=== PATIENT | male | born 1965 | race Caucasian/White ===

== ENCOUNTER 2022-12-16 19:12 | Observation (INO) | payer OTHER, BC, SELFPAY ==
[2022-12-16] VITALS (19 sets, daily range): BP systolic 166–198; BP diastolic 79–99; PULSE 82–108; RESP 18–20; TEMP 36.4–36.6; O2SAT 93–99; BMI 40.1; BMI 42.0
--- NOTE | 2022-12-16 19:45 | CRLHL7_ITS ---
For Patients: As a result of the Century Cures Act, medical imaging exams and procedure reports are released immediately into your electronic medical record. You may view this report before your referring provider. If you have questions, please contact your health care provider. INDICATION: Right upper quadrant abdominal pain TECHNIQUE: Ultrasound abdomen limited. Sonographic images of the right upper quadrant were obtained using ugalde-scale and color Doppler images. COMPARISON: None FINDINGS: Liver: Moderate to severe fatty infiltration of the liver is present with poor acoustic penetration which limits evaluation of the liver parenchyma. Gallbladder: The neck of the gallbladder is not well demonstrated. Moderate gallbladder hydrops is present measuring 4.8 cm in diameter. The gallbladder wall is normal in appearance. No pericholecystic fluid is present. Sonographic Bai sign was reported. Common bile duct: 6 mm. No intrahepatic biliary ductal dilatation seen. Pancreas: The visualized portions of the pancreatic head and body are normal in appearance. Right Kidney: 14.5 cm. Vascular: The visualized abdominal aorta and IVC are unremarkable. IMPRESSION: 1. Moderate gallbladder hydrops is present measuring 4.8 cm in diameter. Given the presence of sonographic Bai sign, clinical correlation and follow-up is recommended to exclude acalculous cholecystitis. Dictated by Davie Laurent MD @ 12/16/2022 9:59:02 PM Dictated by: Davie Laurent MD @ 12/16/2022 21:59:06 (Electronically Signed)
--- NOTE | 2022-12-16 19:50 | ED.GENADULT ---
HPI - General Adult General Chief complaint: Chest Pain Stated complaint: Chest pain Time Seen by Provider: 12/16/22 19:44 Source: patient and family Mode of arrival: ambulatory Limitations: no limitations History of Present Illness HPI narrative: 57 year old male coming in today Complaining of epigastric burning. Nothing makes it better or worse. It started this afternoon after he had a hamburger and some sausage links for lunch. He states that he had a similar episode in 2014 when he was admitted for cholecystitis, his symptoms completely resolved and he was sent home without any further intervention. Her he states that when the pain started he was quite nauseated and he did vomit once. He denies any fevers or chills. His past medical history is significant for obstructive sleep apnea, morbid obesity, hyponatremia, alcohol use disorder, tobacco use disorder, elevated liver enzymes, hypertension, diabetes, hyperlipidemia. Related Data Home Medications Medication Instructions Recorded Confirmed amlodipine 5 mg tablet 5 mg PO DAILY 11/28/22 11/28/22 atorvastatin 20 mg tablet 20 mg PO DAILY cholesterol 11/28/22 11/28/22 lisinopril 20 mg tablet 20 mg PO DAILY blood pressure 11/28/22 11/28/22 metformin 500 mg tablet,extended 1,000 mg PO QPM 11/28/22 11/28/22 release 24 hr Previous Rx's Medication Instructions Recorded potassium chloride 10 mEq 10 meq PO DAILY #30 caps 11/29/22 capsule,extended release torsemide 10 mg tablet 10 mg PO DAILY #30 tabs 11/29/22 Allergies Allergy/AdvReac Type Severity Reaction Status Date / Time No Known Drug Allergies Allergy Verified 11/28/22 00:09 Review of Systems Status of ROS: Reports: 10 or more systems reviewed and unremarkable except as noted in History and below [facility] Medical History Obstructive sleep apnea ?G47.33 - Obstructive sleep apnea (adult) (pediatric) (ICD-10) Excessive drinking alcohol ?F10.10 - Alcohol abuse, uncomplicated (ICD-10) Tobacco use disorder ?F17.200 - Nicotine dependence, unspecified, uncomplicated (ICD-10) Morbid obesity ?E66.01 - Morbid (severe) obesity due to excess calories (ICD-10) Hyperlipidemia ?E78.5 - Hyperlipidemia, unspecified (ICD-10) Diabetes mellitus ?E11.9 - Type 2 diabetes mellitus without complications (ICD-10) Hypertension ?I10 - Essential (primary) hypertension (ICD-10) Surgical History History of colonoscopy ?Z98.890 - Other specified postprocedural states (ICD-10) History of repair of congenital cleft palate ?Z87.730 - Personal history of (corrected) cleft lip and palate (ICD-10) Family History Mother Stroke Sister Diabetes Social History Narrative: He lives with his and his stepdaughter, 's daughter, in [place]. His Abraham is healthcare power of deputy attorney general. His code status is full. He does smoke cigarettes. Drinks 6 beers per day. Highest level of school completed/degree received: high school graduate Smoking Status: Current every day smoker What tobacco products do you use: cigarettes Smoking packs per day: 1 Smoking cigarettes per day: 20.0 How often do you have a drink containing alcohol: 4 or more times a week Alcohol type: beer How many standard drinks containing alcohol do you have on a typical day: 5 or 6 AUDIT-C Alcohol total score: 6 Non-prescribed substance use: denies use Caffeine: Yes service: No Exam Narrative: Exam Narrative: Obese, well-developed patient in no acute distress. Alert and oriented. Answers questions appropriately. Mood and affect are appropriate. Thoughts are goal oriented and rational. No tangential or magical thinking noted. Patient speaks in full sentences without needing to catch their breath. HEENT: Normocephalic atraumatic. Pupils are equally round reactive to light. Extraocular muscles are intact. Conjunctivae are moist without any icterus noted. Moist mucous membranes. Posterior pharynx is normal. Neck is soft without any lymphadenopathy or thyromegaly. No masses are appreciated. Cardiovascular: Heart is regular rate and rhythm S1 and S2 are present without any murmurs. Lungs: Clear to auscultation bilaterally no wheezes rhonchi or rales are appreciated. Patient takes deep breaths without any discomfort. Abdomen: Protuberant and soft. He does have epigastric tenderness and a positive Bai sign. Normal bowel sounds. Extremities: Bilateral lower extremities to 2+ pitting edema. Normal DP and PT pulses. Skin: Well perfused without any obvious rashes. Const: Vital Signs, click to edit/add: Vital Signs - 24 hr 12/16/22 19:19 12/16/22 19:27 12/16/22 19:28 Temperature 97.6 F Pulse Rate 92 95 Pulse Rate [Pulse Oximeter] 99 Respiratory Rate 20 Blood Pressure 166/79 H Blood Pressure [Le ft Upper Arm] 171/83 H Pulse Oximetry 97 97 98 Oxygen Delivery Me thod Room Air 12/16/22 19:30 12/16/22 19:45 12/16/22 20:00 Temperature Pulse Rate 108 H 85 Pulse Rate [Pulse Oximeter] Respiratory Rate Blood Pressure Blood Pressure [Le ft Upper Arm] Pulse Oximetry 97 95 94 Oxygen Delivery Me thod 12/16/22 20:18 12/16/22 20:19 12/16/22 20:30 Temperature Pulse Rate 90 82 89 Pulse Rate [Pulse Oximeter] Respiratory Rate Blood Pressure 181/89 H Blood Pressure [Le ft Upper Arm] Pulse Oximetry 98 97 98 Oxygen Delivery Me thod Room Air 12/16/22 20:33 12/16/22 20:34 12/16/22 21:00 Temperature Pulse Rate 91 85 94 Pulse Rate [Pulse Oximeter] Respiratory Rate Blood Pressure 188/95 H Blood Pressure [Le ft Upper Arm] Pulse Oximetry 98 99 94 Oxygen Delivery Me thod 12/16/22 21:02 12/16/22 21:03 12/16/22 21:30 Temperature Pulse Rate 89 90 99 Pulse Rate [Pulse Oximeter] Respiratory Rate Blood Pressure 197/98 H 198/88 H Blood Pressure [Le ft Upper Arm] Pulse Oximetry 96 95 94 Oxygen Delivery Me thod 12/16/22 21:33 12/16/22 22:00 12/16/22 22:03 Temperature Pulse Rate 83 89 92 Pulse Rate [Pulse Oximeter] Respiratory Rate Blood Pressure 198/99 H 183/79 H Blood Pressure [Le ft Upper Arm] Pulse Oximetry 93 95 94 Oxygen Delivery Me thod Course Course Hospital Course: IV was started and patient was given fluids and IV morphine. Lab showing slightly elevated lactate and slightly elevated CRP. No elevated white cell count. No evidence of obstruction with normal bilirubin levels. LFTs slightly elevated. Normal lipase. Morphine did not help, patient was given oral hydrocodone which also did not help significantly. Patient was complaining unbearable pain at this point. Abdominal ultrasound was done and showed gallbladder hydrops with a distended gallbladder, potential of acalculous cholecystitis. Discussed the patient with Dr. Naranjo who recommends admission, pain control, repeat labs in the morning and NPO after midnight. Vital Signs Vital signs: Initial Vital Signs Temperature 97.6 F 12/16/22 19:19 Temperature Source Temporal Artery Scan 12/16/22 19:19 Pulse Rate 99 12/16/22 19:19 Pulse Rhythm Regular 12/16/22 19:19 Respiratory Rate 20 12/16/22 19:19 Blood Pressure 171/83 H 12/16/22 19:19 Blood Pressure Mean 112 H 12/16/22 19:19 Pulse Oximetry 97 12/16/22 19:19 Oxygen Delivery Method Room Air 12/16/22 19:19 Vital Signs Temperature 97.6 F 12/16/22 19:19 Pulse Rate 99 12/16/22 19:19 Respiratory Rate 20 12/16/22 19:19 Blood Pressure 171/83 H 12/16/22 19:19 Pulse Oximetry 97 12/16/22 19:19 Oxygen Delivery Method Room Air 12/16/22 19:19 Temperature 97.6 F 12/16/22 19:19 Pulse Rate 92 12/16/22 22:03 Respiratory Rate 12/16/22 19:19 Blood Pressure 183/79 H 12/16/22 22:03 Pulse Oximetry 94 12/16/22 22:03 Oxygen Delivery Method Room Air 12/16/22 20:18 Medical Decision Making MDM Narrative Medical decision making narrative: 57-year-old male with intractable abdominal pain, likely secondary to acalculous cholecystitis. Patient will be admitted for further management. Medical Records Medical records reviewed: Yes I reviewed the patient's medical records Lab Data Lab results reviewed: Yes I reviewed the patient's lab results Labs: Lab Results 12/16/22 12/16/22 Range/Units 19:35 19:45 WBC 8.33 (4.50-11.00) K/uL RBC 4.23 L (4.30-5.90) m/uL Hgb 14.9 (13.5-17.5) gm/dL Hct 44.2 (37.0-53.0) % MCV 105 H (80-100) fL MCH 35 H (26-34) pg MCHC 34 (32-36) gm/dL RDW Coeff of Edgard 11.5 (11.5-15.5) % Plt Count 188 (140-440) K/uL Neut % (Auto) 56.2 (42.0-72.0) % Lymph % (Auto) 27.4 (20-44) % Dare % (Auto) 9.2 (0.0-11.0) % Eos % (Auto) 6.5 (0.0-7.0) % Baso % (Auto) 0.6 (0.0-3.0) % Neut # (Auto) 4.68 (1.7-7.0) K/uL Lymph # (Auto) 2.28 (0.90-2.90) K/uL Dare # (Auto) 0.80 (0.00-0.90) K/UL Eos # (Auto) 0.54 H (0.00-0.50) K/uL Baso # (Auto) 0.05 (0.00-0.30) K/uL Sodium 133 L (135-149) mmol/L Potassium 4.7 (3.6-5.1) mmol/L Chloride 101 (96-114) mmol/L Carbon Dioxide 25 (20-32) mmol/L BUN 13 (7-30) mg/dL Creatinine 1.1 (0.5-1.5) mg/dL Estimated Creat Clear 85.11 Estimated GFR 78 ml/min Glucose 256 H (60-115) mg/dL Lactate 2.5 H (0.5-1.9) mmol/L Calcium 9.3 (8.4-10.6) mg/dL Total Bilirubin 0.3 (0.1-1.5) mg/dL Direct Bilirubin 0.2 (0.0-0.5) mg/dL AST 53 H (12-35) U/L ALT 65 H (4-50) U/L Alkaline Phosphatase 105 (40-150) U/L Troponin I < 0.01 L (0.01-0.04) ng/mL C-Reactive Protein 1.2 H (0.5-1.0) mg/dL Total Protein 7.2 (6.0-8.3) g/dL Albumin 4.3 (3.3-5.0) g/dL Lipase 265 (23-300) U/L Imaging Data US - abdomen: Attestation: I have reviewed the pertinent imaging results. Radiologist's impression: TECHNIQUE: Ultrasound abdomen limited. Sonographic images of the right upper quadrant were obtained using ugalde-scale and color Doppler images. COMPARISON: None FINDINGS: Liver: Moderate to severe fatty infiltration of the liver is present with poor acoustic penetration which limits evaluation of the liver parenchyma. Gallbladder: The neck of the gallbladder is not well demonstrated. Moderate gallbladder hydrops is present measuring 4.8 cm in diameter. The gallbladder wall is normal in appearance. No pericholecystic fluid is present. Sonographic Bai sign was reported. Common bile duct: 6 mm. No intrahepatic biliary ductal dilatation seen. Pancreas: The visualized portions of the pancreatic head and body are normal in appearance. Right Kidney: 14.5 cm. Vascular: The visualized abdominal aorta and IVC are unremarkable. IMPRESSION: 1. Moderate gallbladder hydrops is present measuring 4.8 cm in diameter. Given the presence of sonographic Bai sign, clinical correlation and follow-up is recommended to exclude acalculous cholecystitis. Discharge Plan Discharge Clinical Impression: Intractable abdominal pain, Acalculous cholecystitis Patient Disposition: Admitted As Inpatient Condition: Stable Prescriptions: No Action atorvastatin 20 mg tablet 20 mg PO DAILY lisinopril 20 mg tablet 20 mg PO DAILY amlodipine 5 mg tablet 5 mg PO DAILY metformin 500 mg tablet extended release 24 hr 1,000 mg PO QPM Patient Comments: EVERY EVENING WITH A MEAL torsemide 10 mg tablet 10 mg PO DAILY Qty: 30 2RF potassium chloride 10 mEq capsule, extended release 10 meq PO DAILY Qty: 30 0RF Follow Up/Referrals: Julian Hogan MD [Primary Care Provider] -
[2022-12-16 19:51] LABS: Lactate* 2.5 mmol/L (0.5-1.9)
[2022-12-16] MEDS: 0.9 % SODIUM CHLORIDE 1000 ml 1,000 ML IV (19:54)
[2022-12-16] MEDS: MORPHINE 2 MG/ML inj 4 MG IVP (19:54)
[2022-12-16 20:18] LABS: Basophils Absolute Auto 0.05 K/uL (0.00-0.30); Basophils Percent Auto 0.6 % (0.0-3.0); Eosinophils Absolute Auto 0.54 K/uL (0.00-0.50); Eosinophils Percent Auto 6.5 % (0.0-7.0); Hematocrit 44.2 % (37.0-53.0); Hemoglobin* 14.9 gm/dL (13.5-17.5); Immature Granulocytes Abs Auto 0.01 K/uL (0.00-0.30); Immature Granulocytes Pct Auto 0.1 %; Lymphocytes Absolute Auto 2.28 K/uL (0.90-2.90); Lymphocytes Percent Auto 27.4 % (20-44); Mean Corpuscular HGB Conc 34 gm/dL (32-36); Mean Corpuscular Hemoglobin 35 pg (26-34); Mean Corpuscular Volume 105 fL (80-100); Monocytes Percent Auto 9.2 % (0.0-11.0); Neutrophils Absolute Auto 4.68 K/uL (1.7-7.0); Neutrophils Percent Auto 56.2 % (42.0-72.0); Platelet Count* 188 K/uL (140-440); RDW Coefficient of Variation % 11.5 % (11.5-15.5); Red Blood Count 4.23 m/uL (4.30-5.90); White Blood Count* 8.33 K/uL (4.50-11.00)
[2022-12-16 20:24] LABS: Slide Review Reflex No
[2022-12-16 20:27] LABS: Chloride* 101 mmol/L (96-114)
[2022-12-16 20:28] LABS: Albumin* 4.3 g/dL (3.3-5.0); Potassium* 4.7 mmol/L (3.6-5.1); Sodium* 133 mmol/L (135-149)
[2022-12-16 20:30] LABS: Creatinine* 1.1 mg/dL (0.5-1.5); Est. Creatinine Clearance* 85.11; Estimated Glomerular Filt Rate 78 ml/min
[2022-12-16 20:31] LABS: Alanine Aminotransferase* 65 U/L (4-50); Alkaline Phosphatase* 105 U/L (40-150); Aspartate Amino Transferase* 53 U/L (12-35); Bilirubin Direct* 0.2 mg/dL (0.0-0.5); Bilirubin Total* 0.3 mg/dL (0.1-1.5); Blood Urea Nitrogen* 13 mg/dL (7-30); Calcium* 9.3 mg/dL (8.4-10.6); Carbon Dioxide* 25 mmol/L (20-32); Glucose* 256 mg/dL (60-115); Lipase* 265 U/L (23-300); Total Protein* 7.2 g/dL (6.0-8.3)
[2022-12-16 20:34] LABS: C Reactive Protein* 1.2 mg/dL (0.5-1.0)
[2022-12-16 21:08] LABS: Troponin I* < 0.01 ng/mL (0.01-0.04)
[2022-12-16] MEDS: HYDROCODONE-ACETAMIN 5-325 MG 1 TAB 2 TAB PO (21:10)
[2022-12-16] MEDS: HYDROmorphone 0.5 mg/0.5 ml inj IVP (22:22)
--- NOTE | 2022-12-16 22:48 | ED.NURSE ---
Patient noted to be sleeping when song writer went to reassess pain.
--- NOTE | 2022-12-16 23:10 | ED.NURSE ---
Patient admitted to room 262. Report to NABEEL Livingston on MS. Patient transported to [facility] via wheelchair.
--- NOTE | 2022-12-17 00:27 | P.IMHP_ITS ---
Hospitalist- H&P: HPI History of Present Illness Date Seen: 12/17/22 Chief complaint: Chest pain Narrative: Thad Abbasi is a 57 year old male with obesity, diabetes, hypertension, edema and recent hospitalization for hyponatremia presents the emergency room with onset of epigastric abdominal pain today. Patient reports that he ate lunch around noon today after having a hamburger and sausage links for lunch. Around 3 or 330 he developed epigastric burning pain. He had 1 emesis. He has not had a fever. Because the persists the pain he came to the emergency room. Bowel functions otherwise been normal. He says he thinks he had an episode like this a week or 2 ago. He also had an episode like this in 2014. At that time there was suspicion of cholecystitis or biliary colic but he did not have surgery at that time. He was hospitalized here under my care on November 28 for hyponatremia. That was attributable to excessive free water drinking, excessive alcohol and hydrochlorothiazide. Since that time he has stopped his hydrochlorothiazide and is on torsemide for diuretic. He has had no alcohol since then until this weekend when he had 6 beers over the weekend. He reports he has otherwise been feeling well since he left the hospital. Review of Systems Narrative: No other recent symptoms of illness until this afternoon as described above PFSH [facility] Medical History Obstructive sleep apnea ?G47.33 - Obstructive sleep apnea (adult) (pediatric) (ICD-10) Excessive drinking alcohol ?F10.10 - Alcohol abuse, uncomplicated (ICD-10) Tobacco use disorder ?F17.200 - Nicotine dependence, unspecified, uncomplicated (ICD-10) Morbid obesity ?E66.01 - Morbid (severe) obesity due to excess calories (ICD-10) Hyperlipidemia ?E78.5 - Hyperlipidemia, unspecified (ICD-10) Diabetes mellitus ?E11.9 - Type 2 diabetes mellitus without complications (ICD-10) Hypertension ?I10 - Essential (primary) hypertension (ICD-10) Surgical History History of colonoscopy ?Z98.890 - Other specified postprocedural states (ICD-10) History of repair of congenital cleft palate ?Z87.730 - Personal history of (corrected) cleft lip and palate (ICD-10) Family History Mother Stroke Sister Diabetes Social History Narrative: He lives with his and his stepdaughter, 's daughter, in [place]. His Abraham is healthcare power of seasonal customer service associate. His code status is full. He does smoke cigarettes. Drinks 6 beers per day. Highest level of school completed/degree received: high school graduate Smoking Status: Current every day smoker What tobacco products do you use: cigarettes Smoking packs per day: 1 Smoking cigarettes per day: 20.0 How often do you have a drink containing alcohol: 4 or more times a week Alcohol type: beer How many standard drinks containing alcohol do you have on a typical day: 5 or 6 AUDIT-C Alcohol total score: 6 Non-prescribed substance use: denies use Caffeine: Yes service: No Meds Home Medications and Allergies Home Medications Medication Instructions Recorded Confirmed Type amlodipine 5 mg tablet 5 mg PO DAILY 11/28/22 12/17/22 History atorvastatin 20 mg tablet 20 mg PO DAILY cholesterol 11/28/22 12/17/22 History lisinopril 20 mg tablet 20 mg PO DAILY blood pressure 11/28/22 12/17/22 History metformin 500 mg tablet,extended 1,000 mg PO QPM 11/28/22 12/17/22 History release 24 hr Home Medication Comments: Torsemide 10 mg daily Potassium 10 mEq daily Allergies Allergy/AdvReac Type Severity Reaction Status Date / Time No Known Drug Allergies Allergy Verified 11/28/22 00:09 Exam Narrative: Exam Narrative: He is alert and appears in no distress. Speech is normal. He is oriented to his circumstances. Eyes normal. Sclerae nonicteric. Oropharynx with small airway. Neck is supple without mass or adenopathy. Respirations are clear to auscultation. Cardiovascular: S1, S2, regular rate and rhythm. No murmur gallop or rub. Abdomen: Bowel sounds active. Abdomen is soft he has mild epigastric and right upper quadrant tenderness. No mass. No peritonitis. Umbilical hernia noted. Nontender an easily reduced. Trace edema in his ankles. Const: Vital Signs, click to edit/add: Vital Signs - 24 hr 12/16/22 19:19 12/16/22 19:27 12/16/22 19:28 Temperature 97.6 F Pulse Rate 92 95 Pulse Rate [Left P ulse Oximeter] Pulse Rate [Pulse Oximeter] 99 Respiratory Rate 20 Blood Pressure 166/79 H Blood Pressure [Le ft Arm] Blood Pressure [Le ft Upper Arm] 171/83 H Pulse Oximetry 97 97 98 Oxygen Delivery Me od Room Air 12/16/22 19:30 12/16/22 19:45 12/16/22 20:00 Temperature Pulse Rate 108 H 85 Pulse Rate [Left P ulse Oximeter] Pulse Rate [Pulse Oximeter] Respiratory Rate Blood Pressure Blood Pressure [Le ft Arm] Blood Pressure [Le ft Upper Arm] Pulse Oximetry 97 95 94 Oxygen Delivery Me od 12/16/22 20:18 12/16/22 20:19 12/16/22 20:30 Temperature Pulse Rate 90 82 89 Pulse Rate [Left P ulse Oximeter] Pulse Rate [Pulse Oximeter] Respiratory Rate Blood Pressure 181/89 H Blood Pressure [Le ft Arm] Blood Pressure [Le ft Upper Arm] Pulse Oximetry 98 97 [facility] 12/16/22 20:33 12/16/22 20:34 12/16/22 21:00 Temperature Pulse Rate 91 85 94 Pulse Rate [Left P ulse Oximeter] Pulse Rate [Pulse Oximeter] Respiratory Rate Blood Pressure 188/95 H Blood Pressure [Le ft Arm] Blood Pressure [Le ft Upper Arm] Pulse Oximetry 98 99 94 [facility] 12/16/22 21:02 12/16/22 21:03 12/16/22 21:30 Temperature Pulse Rate 89 90 99 Pulse Rate [Left P ulse Oximeter] Pulse Rate [Pulse Oximeter] Respiratory Rate Blood Pressure 197/98 H 198/88 H Blood Pressure [Le ft Arm] Blood Pressure [Le ft Upper Arm] Pulse Oximetry 96 95 94 Oxygen Delivery Me od 12/16/22 21:33 12/16/22 22:00 12/16/22 22:03 Temperature Pulse Rate 83 89 92 Pulse Rate [Left P ulse Oximeter] Pulse Rate [Pulse Oximeter] Respiratory Rate Blood Pressure 198/99 H 183/79 H Blood Pressure [Le ft Arm] Blood Pressure [Le ft Upper Arm] Pulse Oximetry 93 95 94 Oxygen Delivery Me od 12/16/22 23:23 Temperature 97.9 F Pulse Rate Pulse Rate [Left P ulse Oximeter] 95 Pulse Rate [Pulse Oximeter] Respiratory Rate 18 Blood Pressure Blood Pressure [Le ft Arm] 170/86 H Blood Pressure [Le ft Upper Arm] Pulse Oximetry 96 Oxygen Delivery Me thod Room Air Documenting provider has reviewed patient's vital signs: yes Hospitalist - H&P: Result Labs Labs: Short CBC 12/16/22 Range/Units 19:35 WBC 8.33 (4.50-11.00) K/uL Hgb 14.9 (13.5-17.5) gm/dL Hct 44.2 (37.0-53.0) % Plt Count 188 (140-440) K/uL BMP 12/16/22 19:35 Sodium 133 L Potassium 4.7 Chloride 101 Carbon Dioxide 25 BUN 13 Creatinine 1.1 Glucose 256 H Calcium 9.3 Cardiac Enzymes 12/16/22 Range/Units 19:35 Troponin I < 0.01 L (0.01-0.04) ng/mL Liver Function 12/16/22 Range/Units 19:35 Total Bilirubin 0.3 (0.1-1.5) mg/dL Direct Bilirubin 0.2 (0.0-0.5) mg/dL AST 53 H (12-35) U/L ALT 65 H (4-50) U/L Alkaline Phosphatase 105 (40-150) U/L Albumin 4.3 (3.3-5.0) g/dL ECG Attestation: I personally reviewed and interpreted this ECG as follows: (Normal sinus rhythm. Incomplete right bundle branch block. No acute ischemic changes.) ECG interpretation date: 12/17/22 Assessment and Plan Assessment and plan (1) Acalculous cholecystitis: Problem comment: Consult surgery. Plan cholecystectomy Status: Acute (2) Intractable abdominal pain: Problem comment: Due to cholecystitis Status: Acute (3) Morbid obesity: Problem comment: BMI of 43 Status: Acute (4) Diabetes mellitus: Problem comment: Recent hemoglobin A1c on November 10 was 6.8. I have increased his metformin based on report of higher blood sugars recently. Reassess with primary care Status: Acute (5) Excessive drinking alcohol: Problem comment: Has reduced alcohol in the last 2 and half weeks Status: Acute (6) Tobacco use disorder: Problem comment: Recommend tobacco cessation Status: Acute (7) Obstructive sleep apnea: Problem comment: Consider outpatient evaluation. Status: Suspected (8) High transaminase levels: Problem comment: Present in the context of fatty liver on imaging and excess alcohol use. Transaminases are improved. Alcohol use is reduced. Status: Acute Plan Patient be admitted to the hospital for surgical consultation and probable laparoscopic cholecystectomy. Considerations that may complicate surgery and postoperative care include obesity and clinically suspected sleep apnea. He does have hepatic steatosis as well. I do not think current alcohol use or alcohol withdrawal will be a significant problem. Diabetes is relatively mild as well. Total time spent is 50 minutes, 30 minutes in coordination of care and discussing with patient and ongoing evaluation management of cholecystitis
[2022-12-17] MEDS: SODIUM CHLORIDE 0.9 % (FLUSH) 10 ML SYRINGE 5 ML IVF (00:39)
[2022-12-17] MEDS: 0.9 % SODIUM CHLORIDE 1000 ml 1,000 ML 150 ML IV ×2 (00:40→07:29)
[2022-12-17 03:00] VITALS: BP 147/80; PULSE 89; RESP 18; TEMP 36.6; O2SAT 95
--- NOTE | 2022-12-17 05:15 | PC.NURSE ---
Shift note: Pt arrived at the unit at 2310 on a wheelchair accompanied by . Pt was alert/oriented and conscious. Pt confirmed mild abd pain but was stable. Bp was very high. No skin condition observed. Oriented to room and educated on condition. Treatment given as ordered. NPO status maintained for possible surgery today.
[2022-12-17 07:00] VITALS: BP 147/81; PULSE 79; PULSE 95; RESP 16; TEMP 36.4; O2SAT 95
[2022-12-17] MEDS: OMEPRAZOLE 20 MG CAPSULE DR PO (09:21)
--- NOTE | 2022-12-17 09:24 | NUTR.NU ---
RDN with MD nutrition consult for diet education related to cholecystitis. Patient and designated caregiver (Abraham)agreed to receive low-fat diet education. Discussed foods to include and foods to avoid until MD recommends otherwise. Education also provided following a low fat diet (about 45-60 grams/day). Verbal and written information as well as a sample menu provided from [facility]. Patient and designated caregiver verbalized understanding. RDN's contact information was provided and patient was encouraged to contact RDN with questions.
[2022-12-17 09:44] LABS: HCO3 VBG 23 mmol/L (21-28); Ionized Calcium* 1.21 mmol/L (1.11-1.30); Lactate* 1.5 mmol/L (0.5-1.9); PCO2 VBG 38 mmHG (40-50); PO2 VBG 65.1 mmHG (25-47); pH VBG 7.391 (7.32-7.43)
[2022-12-17] MEDS: TORSEMIDE 20 MG TABLET 10 MG PO (09:44)
[2022-12-17] MEDS: lisinopriL 20 MG TABLET PO (09:44)
[2022-12-17] MEDS: ATORVASTATIN 10 MG TABLET 20 MG PO (09:44)
[2022-12-17] MEDS: POTASSIUM CHLORIDE 10 MEQ CAPSULE ER PO (09:44)
[2022-12-17] MEDS: AMLODIPINE 5 MG TABLET PO (09:44)
[2022-12-17 10:05] LABS: Albumin* 3.9 g/dL (3.3-5.0); Chloride* 105 mmol/L (96-114)
[2022-12-17 10:06] LABS: Potassium* 4.1 mmol/L (3.6-5.1); Sodium* 135 mmol/L (135-149)
[2022-12-17 10:08] LABS: Creatinine* 0.6 mg/dL (0.5-1.5); Est. Creatinine Clearance* 156.03; Estimated Glomerular Filt Rate 112 ml/min
[2022-12-17 10:09] LABS: Alanine Aminotransferase* 56 U/L (4-50); Alkaline Phosphatase* 81 U/L (40-150); Aspartate Amino Transferase* 44 U/L (12-35); Bilirubin Total* 0.5 mg/dL (0.1-1.5); Blood Urea Nitrogen* 11 mg/dL (7-30); Calcium* 9.5 mg/dL (8.4-10.6); Carbon Dioxide* 23 mmol/L (20-32); Cholesterol* 135 mg/dL (90-199); Glucose* 132 mg/dL (60-115); Lipase* 154 U/L (23-300); Total Protein* 6.7 g/dL (6.0-8.3); Triglycerides* 119 mg/dL (40-149)
[2022-12-17 10:10] LABS: HDL Cholesterol* 32 mg/dL (>=40); Hemoglobin A1C* 6.95 % (0-5.6); LDL Cholesterol Calculated 79 mg/dL (<100)
[2022-12-17 10:12] LABS: C Reactive Protein* 1.6 mg/dL (0.5-1.0)
--- NOTE | 2022-12-17 10:14 | P.GSCN_ITS ---
History of Present Illness Consult details Date Seen: 12/17/22 Consult date: 12/17/22 Narrative: Patient presented to the emergency department yesterday evening for persistent epigastric abdominal pain. He says that the pain started after he ate lunch, which was a hamburger and 3 pork sausage links. He describes the pain as a burning sensation in his upper abdomen with radiation up into his chest. The pain is similar to an episode he had back in 2014, for which he was hospitalized. Findings at that time were consistent with gastritis. The pain persisted throughout the day. He ate a pork steak in [employer] for dinner, which did not worsen the pain but also did not help it. He did try taking some antacids at home which also did not help the pain. He is a heavy smoker and has a history of heavy alcohol use. He was recently hospitalized for hyponatremia associated with his alcohol use. Since that hospitalization he has cut back. His last drink was on Wednesday. Since being in the hospital his pain is completely resolved. He denies any d iscomfort this morning. Review of Systems Status of ROS: Reports: 6 or more systems reviewed and unremarkable except as noted in History and below PFSH [facility] Medical History Obstructive sleep apnea ?G47.33 - Obstructive sleep apnea (adult) (pediatric) (ICD-10) Excessive drinking alcohol ?F10.10 - Alcohol abuse, uncomplicated (ICD-10) Tobacco use disorder ?F17.200 - Nicotine dependence, unspecified, uncomplicated (ICD-10) Morbid obesity ?E66.01 - Morbid (severe) obesity due to excess calories (ICD-10) Hyperlipidemia ?E78.5 - Hyperlipidemia, unspecified (ICD-10) Diabetes mellitus ?E11.9 - Type 2 diabetes mellitus without complications (ICD-10) Hypertension ?I10 - Essential (primary) hypertension (ICD-10) Surgical History History of colonoscopy ?Z98.890 - Other specified postprocedural states (ICD-10) History of repair of congenital cleft palate ?Z87.730 - Personal history of (corrected) cleft lip and palate (ICD-10) Family History Mother Stroke Sister Diabetes Social History Narrative: He lives with his and his stepdaughter, 's daughter, in [place]. His Abraham is healthcare power of privacy attorney. His code status is full. He does smoke cigarettes. Drinks 6 beers per day. Highest level of school completed/degree received: high school graduate Smoking Status: Current every day smoker What tobacco products do you use: ci garettes Smoking packs per day: 1 Smoking cigarettes per day: 20.0 How often do you have a drink containing alcohol: 4 or more times a week Alcohol type: beer How many standard drinks containing alcohol do you have on a typical day: 5 or 6 AUDIT-C Alcohol total score: 6 Non-prescribed substance use: denies use Caffeine: Yes service: No Meds Home Medications and Allergies Home Medications Medication Instructions Recorded Confirmed Type amlodipine 5 mg tablet 5 mg PO DAILY 11/28/22 12/17/22 History atorvastatin 20 mg tablet 20 mg PO DAILY cholesterol 11/28/22 12/17/22 History lisinopril 20 mg tablet 20 mg PO DAILY blood pressure 11/28/22 12/17/22 History metformin 500 mg tablet,extended 1,000 mg PO QPM 11/28/22 12/17/22 History release 24 hr Allergies Allergy/AdvReac Type Severity Reaction Status Date / Time No Known Drug Allergies Allergy Verified 11/28/22 00:09 Exam Narrative: Exam Narrative: General: Alert and oriented, no acute distress Respiratory: Equal breath rise bilaterally, maintained on room air CV: Regular the rate, well perfused Abdomen: Obese abdomen, nontender to palpation, nondistended. Const: Vital Signs, click to edit/add: Vital Signs - 24 hr 12/16/22 19:19 12/16/22 19:27 12/16/22 19:28 Temperature 97.6 F Pulse Rate 92 95 Pulse Rate [Left P ulse Oximeter] Pulse Rate [Pulse Oximeter] 99 Respiratory Rate 20 Blood Pressure 166/79 H Blood Pressure [Le ft Arm] Blood Pressure [Le ft Upper Arm] 171/83 H Blood Pressure [Ri ght Arm] Pulse Oximetry 97 97 98 Oxygen Delivery Me thod Room Air 12/16/22 19:30 12/16/22 19:45 12/16/22 20:00 Temperature Pulse Rate 108 H 85 Pulse Rate [Left P ulse Oximeter] Pulse Rate [Pulse Oximeter] Respiratory Rate Blood Pressure Blood Pressure [Le ft Arm] Blood Pressure [Le ft Upper Arm] Blood Pressure [Ri ght Arm] Pulse Oximetry [address] [facility] 12/16/22 20:18 12/16/22 20:19 12/16/22 20:30 Temperature Pulse Rate 90 82 89 Pulse Rate [Left P ulse Oximeter] Pulse Rate [Pulse Oximeter] Respiratory Rate Blood Pressure 181/89 H Blood Pressure [Le ft Arm] Blood Pressure [Le ft Upper Arm] Blood Pressure [Ri ght Arm] Pulse Oximetry 98 97 98 Oxygen Delivery [facility] Room Air 12/16/22 20:33 12/16/22 20:34 12/16/22 21:00 Temperature Pulse Rate 91 85 94 Pulse Rate [Left P ulse Oximeter] Pulse Rate [Pulse Oximeter] Respiratory Rate Blood Pressure 188/95 H Blood Pressure [Le ft Arm] Blood Pressure [Le ft Upper Arm] Blood Pressure [Ri ght Arm] Pulse Oximetry [address] [facility] [facility] 12/16/22 21:02 12/16/22 21:03 12/16/22 21:30 Temperature Pulse Rate 89 90 99 Pulse Rate [Left P ulse Oximeter] Pulse Rate [Pulse Oximeter] Respiratory Rate Blood Pressure 197/98 H 198/88 H Blood Pressure [Le ft Arm] Blood Pressure [Le ft Upper Arm] Blood Pressure [Ri ght Arm] Pulse Oximetry [address] [facility] [facility] 12/16/22 21:33 12/16/22 22:00 12/16/22 22:03 Temperature Pulse Rate 83 89 92 Pulse Rate [Left P ulse Oximeter] Pulse Rate [Pulse Oximeter] Respiratory Rate Blood Pressure 198/99 H 183/79 H Blood Pressure [Le ft Arm] Blood Pressure [Le ft Upper Arm] Blood Pressure [Ri ght Arm] Pulse Oximetry [address] [facility] [facility] 12/16/22 23:23 12/17/22 03:00 12/17/22 07:00 Temperature 97.9 F 97.9 F 97.6 F Pulse Rate Pulse Rate [Left P ulse Oximeter] 95 89 95 Pulse Rate [Pulse Oximeter] Respiratory Rate 18 18 16 Blood Pressure Blood Pressure [Le ft Arm] 170/86 H 147/80 H Blood Pressure [Le ft Upper Arm] Blood Pressure [Ri ght Arm] 147/81 H Pulse Oximetry 96 95 95 Oxygen Delivery Me thod Room Air Room Air Room Air 12/17/22 07:00 Temperature Pulse Rate Pulse Rate [Left P ulse Oximeter] 79 Pulse Rate [Pulse Oximeter] Respiratory Rate 16 Blood Pressure Blood Pressure [Le ft Arm] Blood Pressure [Le ft Upper Arm] Blood Pressure [Ri ght Arm] Pulse Oximetry Oxygen Delivery Me thod Results Labs Labs: Abnormal lab results 12/16/22 12/16/22 12/17/22 Range/Units 19:35 19:45 09:37 RBC 4.23 L (4.30-5.90) m/uL MCV 105 H (80-100) fL MCH 35 H (26-34) pg Eos # (Auto) 0.54 H (0.00-0.50) K/uL VBG pCO2 38 L (40-50) mmHG VBG pO2 65.1 H (25-47) mmHG Sodium 133 L (135-149) mmol/L Glucose 256 H (60-115) mg/dL Lactate 2.5 H (0.5-1.9) mmol/L AST 53 H (12-35) U/L ALT 65 H (4-50) U/L Troponin I < 0.01 L (0.01-0.04) ng/mL C-Reactive Protein 1.2 H (0.5-1.0) mg/dL Diabetes panel 12/16/22 Range/Units 19:35 Sodium 133 L (135-149) mmol/L Potassium 4.7 (3.6-5.1) mmol/L Chloride 101 (96-114) mmol/L Carbon Dioxide 25 (20-32) mmol/L BUN 13 (7-30) mg/dL Creatinine 1.1 (0.5-1.5) mg/dL Glucose 256 H (60-115) mg/dL Calcium 9.3 (8.4-10.6) mg/dL AST 53 H (12-35) U/L ALT 65 H (4-50) U/L Alkaline Phosphatase 105 (40-150) U/L Total Protein 7.2 (6.0-8.3) g/dL Albumin 4.3 (3.3-5.0) g/dL Calcium panel 12/16/22 12/17/22 Range/Units 19:35 09:37 Calcium 9.3 (8.4-10.6) mg/dL Ionized Calcium Lotus 1.21 (1.11-1.30) mmol/L Albumin 4.3 (3.3-5.0) g/dL Pituitary panel 12/16/22 Range/Units 19:35 Sodium 133 L (135-149) mmol/L Potassium 4.7 (3.6-5.1) mmol/L Chloride 101 (96-114) mmol/L Carbon Dioxide 25 (20-32) mmol/L BUN 13 (7-30) mg/dL Creatinine 1.1 (0.5-1.5) mg/dL Glucose 256 H (60-115) mg/dL Calcium 9.3 (8.4-10.6) mg/dL Adrenal panel 12/16/22 Range/Units 19:35 Sodium 133 L (135-149) mmol/L Potassium 4.7 (3.6-5.1) mmol/L Chloride 101 (96-114) mmol/L Carbon Dioxide 25 (20-32) mmol/L BUN 13 (7-30) mg/dL Creatinine 1.1 (0.5-1.5) mg/dL Glucose 256 H (60-115) mg/dL Calcium 9.3 (8.4-10.6) mg/dL Total Bilirubin 0.3 (0.1-1.5) mg/dL AST 53 H (12-35) U/L ALT 65 H (4-50) U/L Alkaline Phosphatase 105 (40-150) U/L Total Protein 7.2 (6.0-8.3) g/dL Albumin 4.3 (3.3-5.0) g/dL All other labs normal. Imaging Abdominal ultrasound report/results: report reviewed and image reviewed Assessment and Plan Assessment and plan (1) Epigastric abdominal pain: Status: Acute Plan Patient is a 57-year-old male who presented to the emergency department with persistent epigastric pain. This pain has now completely resolved. Workup was obtained with no evidence of leukocytosis and liver panel demonstrating only mild elevation in transaminases. Normal bilirubin and normal alkaline phosphatase. An abdominal ultrasound was obtained, which at the time did demonstrate a positive Bai sign and mild dilation of the gallbladder. No evidence of stones or sludge on imaging. His chart was extensively reviewed, including his last emergency room visit in 2014. At that time an abdominal ultrasound was also obtained, which demonstrated again no sludge or stones. CT abdomen/pelvis was last performed on 11/28/2022. This demonstrated no abnormalities of the stomach or gallbladder. Given patient's complete resolution of symptoms this does not fit the picture of acalculous cholecystitis. Symptoms could be associated with biliary dyskinesia verses gastritis. Recommend that patient receive a HIDA scan as an outpatient, with follow-up in surgery clinic. I have scheduled the HIDA scan to be performed next Wednesday, with him seeing me on 12/24/2022. He was instructed to start a low-fat diet and take omeprazole 20 mg b.i.d. in the interim.
[2022-12-17 10:28] LABS: NT Pro B Type NatriureticPept* 59 pg/mL; Troponin I* < 0.01 ng/mL (0.01-0.04)
[2022-12-17 11:00] VITALS: BP 115/68; PULSE 89; RESP 16; TEMP 36.6; O2SAT 95
--- NOTE | 2022-12-17 13:28 | PC.NURSE ---
Discharge: Patient pleasant and cooperative. Patient vitally stable, lungs clear, BS WNL, IV removed, catheter intact. Patient independent in room. Patient denies pain. Patient urinating and tolerating regular diet. No pain or nausea after breakfast. Patient signed belongings sheet and discharge form. Patient had no further questions regarding discharge. Patient left the floor by foot at 1326.
--- NOTE | 2022-12-17 16:26 | PM.DS1 ---
DS: Providers Provider Date Seen: 12/17/22 Date of admission: 12/16/22 23:07 Primary care physician: Julian Hogan MD Admitting Clinician: Issa Layne MD Consults: 12/17/22 08:48 Consult to Nutrition [CONS] Routine Comment: Reason for consult:: Nutritional Consult Comment: Gall Bladder-cholecystitis Attending Physician on discharge: Paige Tomas MD [facility] Date of Discharge: 12/17/22 DS: Diagnosis Discharge Diagnosis (1) Epigastric abdominal pain: Status: Acute Problem details: -acalculous cholecystitis, biliary dyskinesia. Patient's labs and clinical symptoms had all improved. Patient was hungry this morning tolerated a morning breakfast. -in discussion with general surgery we felt the best course of action was to pursue a HIDA scan which was scheduled for the patient and a follow-up in her clinic (Dr. Afia Dockery) (2) Acalculous cholecystitis: Status: Acute Problem details: HIDA scan as an outpatient. (3) Intractable abdominal pain: Status: Acute Problem details: Resolved (4) Obstructive sleep apnea: Status: Suspected Problem details: Consider outpatient evaluation. (5) Morbid obesity: Status: Acute Problem details: BMI of 43 (6) Diabetes mellitus: Status: Acute Problem details: Recent hemoglobin A1c on November 10 was 6.8. I have increased his metformin based on report of higher blood sugars recently. Reassess with primary care DS: Summary Hospital Course Hospital Course: HOSPITALIST DISCHARGE SUMMARY ATTENDING PHYSICIAN: Paige Tomas MD FINAL DIAGNOSIS: Mid epigastric pain likely due to acalculous cholecystitis versus biliary dyskinesia Type 2 diabetes HOSPITAL FOLLOWUP ISSUES: Outpatient HIDA scan Outpatient General surgery clinic follow-up REFERRALS WHILE ADMITTED: General surgeon REFERRALS AFTER DISCHARGE: General surgery BRIEF HOSPITAL COURSE: 57-year-old with mid epigastric pain, severe. Patient's clinical picture was most consistent with acalculous cholecystitis or biliary colic/dyskinesia. However patient's symptoms resolved completely overnight. His labs improved. In discussion with general surgery in the patient the plan is to pursue an outpatient HIDA scan with possible outpatient cholecystectomy planned. Patient is to return to the ER if having a return of his pain. Sent home on a PPI. DISCHARGE MEDICATIONS: See Reconciled list - SIGNIFICANT CHANGES: None REVIEW OF SYSTEMS No new chest pain or dyspnea Pain controlled No voiding difficulties Tolerating diet challenge PHYSICAL EXAM: CONSTITUTIONAL: VITAL SIGNS: see record. HEENT: Normocephalic, atraumatic. PERRL, EOMI, conjunctivae pink, no scleral icterus. Ears and nose externally normal. Pharynx normal. NECK: No JVD. No carotid bruit, no thyromegaly, no adenopathy. CHEST: Clear to auscultation bilaterally. HEART: S1 and S2 normal. Edema ABDOMEN: Soft, nontender. Normal bowel sounds. MUSCULOSKELETAL: No gross joint deformity or swelling. NEURO: Cranial nerves intact. Grossly intact. No asymmetric findings. SKIN: No rashes, petechiae, concerning changes PSYCHIATRIC: Mood euthymic. DISPOSITION: Home Time spent on discharge 37 minutes. Time Spent with Patient Time attestation: Total time spent providing and/or coordinating discharge services: Exam Const: Vital Signs, click to edit/add: Vital Signs - 24 hr 12/16/22 19:19 12/16/22 19:27 12/16/22 19:28 Temperature 97.6 F Pulse Rate 92 95 Pulse Rate [Left P ulse Oximeter] Pulse Rate [Pulse Oximeter] 99 Respiratory Rate 20 Blood Pressure 166/79 H Blood Pressure [Le ft Arm] Blood Pressure [Le ft Upper Arm] 171/83 H Blood Pressure [Ri ght Arm] Pulse Oximetry 97 97 98 Oxygen Delivery Me thod Room Air 12/16/22 19:30 12/16/22 19:45 12/16/22 20:00 Temperature Pulse Rate 108 H 85 Pulse Rate [Left P ulse Oximeter] Pulse Rate [Pulse Oximeter] Respiratory Rate Blood Pressure Blood Pressure [Le ft Arm] Blood Pressure [Le ft Upper Arm] Blood Pressure [Ri ght Arm] Pulse Oximetry 97 95 94 Oxygen Delivery Me thod 12/16/22 20:18 12/16/22 20:19 12/16/22 20:30 Temperature Pulse Rate 90 82 89 Pulse Rate [Left P ulse Oximeter] Pulse Rate [Pulse Oximeter] Respiratory Rate Blood Pressure 181/89 H Blood Pressure [Le ft Arm] Blood Pressure [Le ft Upper Arm] Blood Pressure [Ri ght Arm] Pulse Oximetry 98 97 98 Oxygen Delivery [facility] [facility] Room Air 12/16/22 20:33 12/16/22 20:34 12/16/22 21:00 Temperature Pulse Rate 91 85 94 Pulse Rate [Left P ulse Oximeter] Pulse Rate [Pulse Oximeter] Respiratory Rate Blood Pressure 188/95 H Blood Pressure [Le ft Arm] Blood Pressure [Le ft Upper Arm] Blood Pressure [Ri ght Arm] Pulse Oximetry 98 99 94 [facility] Delivery [facility] 12/16/22 21:02 12/16/22 21:03 12/16/22 21:30 Temperature Pulse Rate 89 90 99 Pulse Rate [Left P ulse Oximeter] Pulse Rate [Pulse Oximeter] Respiratory Rate Blood Pressure 197/98 H 198/88 H Blood Pressure [Le ft Arm] Blood Pressure [Le ft Upper Arm] Blood Pressure [Ri ght Arm] Pulse Oximetry 96 95 94 Oxygen Delivery [facility] 12/16/22 21:33 12/16/22 22:00 12/16/22 22:03 Temperature Pulse Rate 83 89 92 Pulse Rate [Left P ulse Oximeter] Pulse Rate [Pulse Oximeter] Respiratory Rate Blood Pressure 198/99 H 183/79 H Blood Pressure [Le ft Arm] Blood Pressure [Le ft Upper Arm] Blood Pressure [Ri ght Arm] Pulse Oximetry 93 95 94 Oxygen Delivery [facility] 12/16/22 23:23 12/17/22 03:00 12/17/22 07:00 Temperature 97.9 F 97.9 F 97.6 F Pulse Rate Pulse Rate [Left P ulse Oximeter] 95 89 95 Pulse Rate [Pulse Oximeter] Respiratory Rate 18 18 16 Blood Pressure Blood Pressure [Le ft Arm] 170/86 H 147/80 H Blood Pressure [Le ft Upper Arm] Blood Pressure [Ri ght Arm] 147/81 H Pulse Oximetry 96 95 95 Oxygen Delivery [facility] Room Air Room Air Room Air 12/17/22 07:00 12/17/22 11:00 Temperature 97.8 F Pulse Rate Pulse Rate [Left P ulse Oximeter] 79 89 Pulse Rate [Pulse Oximeter] Respiratory Rate 16 16 Blood Pressure Blood Pressure [Le ft Arm] 115/68 Blood Pressure [Le ft Upper Arm] Blood Pressure [Ri ght Arm] Pulse Oximetry 95 Oxygen Delivery [facility] Room Air DS: Data Data Completed and Pending Labs on day of discharge: Labs from last 24 hours 12/17/22 12/16/22 12/16/22 09:37 19:45 19:35 WBC 8.33 RBC 4.23 L Hgb 14.9 Hct 44.2 MCV 105 H MCH 35 H MCHC 34 RDW Coeff of Edgard 11.5 Plt Count 188 Neut % (Auto) 56.2 Lymph % (Auto) 27.4 Winn % (Auto) 9.2 Eos % (Auto) 6.5 Baso % (Auto) 0.6 Neut # (Auto) 4.68 Lymph # (Auto) 2.28 Winn # (Auto) 0.80 Eos # (Auto) 0.54 H Baso # (Auto) 0.05 VBG pH 7.391 VBG pCO2 38 L VBG pO2 65.1 H VBG HCO3 23 Sodium 135 133 L Potassium 4.1 4.7 Chloride 105 101 Carbon Dioxide 23 25 BUN 11 13 Creatinine 0.6 1.1 Estimated Creat Clear 156.03 85.11 Estimated GFR 112 78 Glucose 132 H 256 H Hemoglobin A1c 6.95 H Lactate 1.5 2.5 H Calcium 9.5 9.3 Ionized Calcium Lotus 1.21 Magnesium Pending Total Bilirubin 0.5 0.3 Direct Bilirubin 0.2 AST 44 H 53 H ALT 56 H 65 H Alkaline Phosphatase 81 105 Troponin I < 0.01 L < 0.01 L C-Reactive Protein 1.6 H 1.2 H NT-Pro-B Natriuret Pep 59 Total Protein 6.7 7.2 Albumin 3.9 4.3 Triglycerides 119 Cholesterol 135 LDL Cholesterol, Calc 79 HDL Cholesterol 32 L Lipase 154 265 Discharge Plan Discharge Disposition: Home, Self-Care Date of Admission: 12/16/22 23:07 Attending Provider on Discharge: Paige Tomas Primary Care Provider: Julian Hogan Condition: Stable Anticipated Discharge Date/Time: 12/17/22 12:34 Discharge Medications: New omeprazole 20 mg capsule,delayed release(DR/EC) 20 mg PO BID Qty: 60 2RF Continued atorvastatin 20 mg tablet 20 mg PO DAILY lisinopril 20 mg tablet 20 mg PO DAILY amlodipine 5 mg tablet 5 mg PO DAILY metformin 500 mg tablet extended release 24 hr 1,000 mg PO QPM Patient Comments: EVERY EVENING WITH A MEAL torsemide 10 mg tablet 10 mg PO DAILY Qty: 30 2RF potassium chloride 10 mEq capsule, extended release 10 meq PO DAILY Qty: 30 0RF Discharge Orders: Discharge Order (Routine); Ordered 12/17/22 Ordered By: Piage Tomas Patient Education: Omeprazole (By mouth), General Anesthesia (DC), Laparoscopic Cholecystectomy (DC), Post-Operative Instructions: Laparoscopic Cholecystectomy Additional Instructions: You are scheduled to have a Hydascan completed at [facility] on December 22, 2022 at 12:00pm. Prep for this test: nothing to eat or drink after midnight. Activity Level: Activity as Tolerated Discharge Diet: Low Fat/Low Cholesterol Diet Detail: Continue on a low fat diet until your follow up appointment Follow Up Appointments: Afia Dockery MD [Staff Physician] - 12/24/22 1:30 pm (after HIDA scan - later next week [facility]) Forms: [employer] Info Instructions
[2022-12-19 07:12] LABS: Magnesium* 1.7 mg/dL (1.5-2.6)
== END 2022-12-17 13:26 | disposition home or self-care (01) ==
LOC: ED 22:16 → MEDSURG 23:08
PROVIDERS: Family Medicine; Admitting Provider Family Medicine; Emergency Provider Family Medicine; PCP Family Medicine; Visit Provider Family Medicine
DX: K81.9 Cholecystitis, unspecified (principal); R10.9 Unspecified abdominal pain; E66.01 Morbid (severe) obesity due to excess calories; E11.9 Type 2 diabetes mellitus without complications; F10.10 Alcohol abuse, uncomplicated; F17.200 Nicotine dependence, unspecified, uncomplicated; G47.33 Obstructive sleep apnea (adult) (pediatric); R74.01 Elevation of levels of liver transaminase levels; R10.13 Epigastric pain
CPT/HCPCS: 36415; 76705; 80048; 80053; 80061; 80076; 82330; 82803; 83036; 83605; 83690; 83735; 83880; 84484; 85025; 86140; 93005; 94761; 96361; 96374; 96375; 99284; A9270; G0378; J1170; J2270; J7030

== ENCOUNTER 2023-01-05 06:11 | Day surgery (SDC) | payer BC, SELFPAY ==
[2023-01-05] VITALS (14 sets, daily range): BP systolic 117–149; BP diastolic 67–84; PULSE 78–96; RESP 14–20; TEMP 36.3–36.9; O2SAT 93–97; BMI 41.8
[2023-01-05] MEDS: SODIUM CHLORIDE 0.9 % (FLUSH) 10 ML SYRINGE IVF (06:40)
[2023-01-05] MEDS: LACTATED RINGERS 1000 ML 1,000 ML 100 ML IV (06:40)
[2023-01-05] MEDS: BUPIVACAINE 0.5% 30 ML INJECTION (07:55)
--- NOTE | 2023-01-05 09:13 | PM.GSPRC ---
Operative Note Date of procedure: 01/05/23 Pre-op diagnosis: Biliary dyskinesia Post-op diagnosis: Same Type of Procedure: Laparoscopic cholecystectomy Indications: Patient is a 57-year-old male with workup in clinical symptoms consistent with biliary dyskinesia. I had a detailed conversation with the patient regarding the diagnosis of biliary dyskinesia. We discussed the treatment options including observation with diet modification and laparoscopic cholecystectomy. We discussed the risks of surgery (including but not limited to) the risks of bleeding, infection, injury to other structures in the abdomen including bile duct injury, bile leak and conversion to an open operation. We discussed the possibility that the patient's pain not improve with surgery. We discussed the possibility of permanent post-operative diarrhea that may require medical management. Additionally, the conceivably of complications requiring additional surgery or further hospitalization were also discussed including the risks of NM, respiratory failure, stroke and blood clots. The patient voiced an understanding of our conversation, had the opportunity to ask questions, agreed to accept the risks of surgery and asked that we proceed with surgery. Procedure Description: After discussing the risks and benefits of the procedure, the patient signed informed consent.? The operative site was marked and the patient was brought to the operating room and placed on the operating table in supine position.? Care was taken to pad the patient's pressure points.?? The patient was then intubated by anesthesia.?? The operative site was then prepped and draped in the usual sterile fashion.? A time-out was then performed. Entrance to the abdomen was gained via a 5 mm Visiport in the left upper quadrant. The abdomen was insufflated and briefly surveyed for signs of injury. There was none. 11 mm supraumbilical port was placed as well as 2 working ports along the right costal margin. Patient was then placed in reverse Trendelenburg position with the right side up. The gallbladder fundus was grasped and retracted cephalad. The infundibulum was grasped. A combination of hook cautery and blunt dissection was used to carefully dissect out the cystic duct and artery until they could clearly be seen entering the gallbladder without any intervening structures. Dissection was made difficult secondary to an enlarged and fatty liver. The gallbladder was dissected off the cystic plate to achieve the critical view. Once this was achieved the cystic duct and artery were each clipped with 2 clips proximally and 1 clip distally and transected with the scissors. A vein was seen on the posterior side of the gallbladder. This was clipped and divided. The gallbladder was then taken off of the liver bed. During dissection a small arterial vessel was identified. A single clip was applied for hemostasis. Once the gallbladder was completely removed from within the fossa it was removed from the abdomen using an Endo-Catch bag. The gallbladder bed was surveyed for hemostasis. A small amount of bile which had spilled was suctioned from the abdomen. The supraumbilical port fascia was closed with 0 Vicryl via the Donaldo-Isabel. All of the remaining ports were then removed under direct vision. The ports were then closed with 4-0 Monocryl and Dermabond applied. Instrument sponge and needle counts were correct at the end of the case. The patient was then woken and transferred to the PACU in stable condition. Findings: Normal gallbladder, fatty liver Anesthesia: COLE Surgeon: Afia Dockery MD Estimated blood loss (mL): 5 Specimen: Gallbladder Disposition: same day
--- NOTE | 2023-01-05 09:26 | W.ANESCHARGE ---
Anesthesia Charges Start Date/Time Anesthesia Start Date: 01/05/23 Anesthesia Start Time: 07:30 Stop Date/Time Anesthesia Stop Date: 01/05/23 Anesthesia Stop Time: 09:26
[2023-01-05] MEDS: fentaNYL 100 MCG/2 ML inj 50 MCG IVP (09:40)
--- NOTE | 2023-01-05 10:04 | PC.NURSE ---
SPoke to SDS nurse and they were okay with monitoring patient with efrain score of 7.
[2023-01-05] MEDS: ACETAMINOPHEN 325 MG TABLET 650 MG PO (11:07)
[2023-01-05] MEDS: OXYCODONE 5 MG TABLET PO (11:07)
== END 2023-01-05 11:43 | disposition home or self-care (01) ==
PROVIDERS: PCP Family Medicine; Visit Provider Surgery
PROC: 0FT44ZZ Resection of Gallbladder, Percutaneous Endoscopic Approach (ICD-10-PCS; CPT 47562; principal; 2023-01-05 07:30)
DX: K82.8 Other specified diseases of gallbladder (principal); K76.0 Fatty (change of) liver, not elsewhere classified
CPT/HCPCS: 47562; 00790; 82962; 88304; A9270; J0330; J1100; J1885; J2405; J2704; J3010; J3490; J7120

== ENCOUNTER 2023-02-16 09:56 | Day surgery (SDC) | payer BC, SELFPAY ==
[2023-02-16] VITALS (12 sets, daily range): BP systolic 125–165; BP diastolic 67–91; PULSE 77–85; RESP 14–20; TEMP 36.2–36.7; O2SAT 95–97; BMI 41.1
[2023-02-16] MEDS: SODIUM CHLORIDE 0.9 % (FLUSH) 10 ML SYRINGE IVF (10:38)
[2023-02-16] MEDS: LACTATED RINGERS 1000 ML 1,000 ML 100 ML IV (10:39)
[2023-02-16] MEDS: CEFAZOLIN 2 GM INJ IVP (10:45)
[2023-02-16] MEDS: CEFAZOLIN 1 GM inj IVP (10:45)
[2023-02-16] MEDS: BUPIVACAINE 0.25% 30 ML INJECTION (11:00)
--- NOTE | 2023-02-16 11:08 | W.ANESCHARGE ---
Anesthesia Charges Start Date/Time Anesthesia Start Date: 02/16/23 Anesthesia Start Time: 10:40 Stop Date/Time Anesthesia Stop Date: 02/16/23 Anesthesia Stop Time: 12:18
--- NOTE | 2023-02-16 11:14 | W.ANESCHARGE ---
Anesthesia Charges Start Date/Time Anesthesia Start Date: 02/16/23 Anesthesia Start Time: 10:40 Stop Date/Time Anesthesia Stop Date: 02/16/23 Anesthesia Stop Time: 12:18
--- NOTE | 2023-02-16 12:06 | P.GSOP_ITS ---
Operative Note Pre-op diagnosis: Umbilical hernia Post-op diagnosis: Same Type of Procedure: Open umbilical hernia repair with placement of mesh Indications: Patient is a 57-year-old male who presented to clinic with a symptomatic umbilical hernia. Different treatment options were reviewed, including observation versus surgical intervention. Risks and benefits of operative intervention were discussed at length with the patient. Risks included but was not limited to: Bleeding, infection, risk of damage to surrounding structures, possible need for additional procedures, risk of recurrent and postoperative complications such as pneumonia, pulmonary emboli or WI. All questions and concerns were addressed with the patient agreeing to proceed. Procedure Description: After discussing the risks and benefits of the procedure, the patient signed informed consent.? The operative site was marked and the patient was brought to the operating room and placed on the operating table in supine position.? Care was taken to pad the patient's pressure points.?? The patient was then intubated by anesthesia.?? The operative site was then prepped and draped in the usual sterile fashion.? A time-out was then performed. A curvilinear incision was made at the inferior border of the umbilicus. Dissection was carried down into the subcutaneous tissue using cautery. The hernia sac was encountered the hernia sac removed from the umbilical stalk. Dissection was taken down to the fascia. The hernia sac was dissected out circumferentially, it was reduced. The fascial edges were then cleared circumferentially. The hernia was 4 cm in size and so the decision was made to use a piece of mesh. A preperitoneal pocket was created using a combination of blunt dissection and cautery. Hemostasis appeared adequate. Once the posterior fascia was clear, a piece of large Ventralex ST hernia mesh was placed in the preperitoneal space with care to ensure that it laid flat. This was secured into place using 2 0 PDS interrupted sutures. The tails were then trimmed and the fascial opening was closed with a running 0 Vicryl. Local anesthetic was i njected into the fascia, skin and subcutaneous tissues. The umbilicus was reapproximated to the fascia. The skin was then closed with running absorbable suture. A sterile dressing was then applied. The patient was then woken and transported to the recovery area in stable condition. ? The patient tolerated the procedure well. Findings: Large umbilical hernia, repaired with mesh. Anesthesia: GETA Surgeon: Afia Dockery MD Estimated blood loss (mL): 5 Condition: stable Disposition: PACU
[2023-02-16] MEDS: fentaNYL 100 MCG/2 ML inj 50 MCG IVP (12:30)
[2023-02-16] MEDS: OXYCODONE 5 MG TABLET PO (13:03)
== END 2023-02-16 14:02 | disposition home or self-care (01) ==
PROVIDERS: PCP Family Medicine; Visit Provider Surgery
PROC: (CPT 49593; principal; 2023-02-16 10:30)
DX: K42.9 Umbilical hernia without obstruction or gangrene (principal)
CPT/HCPCS: 49593; 00830; 82962; A9270; C1781; J0330; J0665; J0690; J1100; J2405; J2704; J3010; J3490; J7120

== ENCOUNTER 2023-05-24 09:40 | Outpatient (CLI) | payer BC, SELFPAY ==
--- NOTE | 2023-05-24 10:51 | W.ANESCHARGE ---
Anesthesia Charges Start Date/Time Anesthesia Start Date: 05/24/23 Anesthesia Start Time: 10:15 Stop Date/Time Anesthesia Stop Date: 05/24/23 Anesthesia Stop Time: 10:50
== END 2023-05-24 09:41 | disposition home or self-care (01) ==
LOC: OP CLINIC 09:41
PROVIDERS: PCP Family Medicine; Visit Provider Internal Medicine Gastroenterology
DX: Z86.010 Personal history of colon polyps (principal); K63.5 Polyp of colon; K57.30 Diverticulosis of large intestine without perforation or abscess without bleeding
CPT/HCPCS: 45380; 811; 88305; J2704